=== PATIENT | male | born 1955 | race Caucasian/White ===

== ENCOUNTER 2017-01-04 05:05 | Emergency (ER) | payer OTHER ==
[~2017-01-04] VITALS: Ht 167.6 cm; Wt 100.0 kg
[~2017-01-04 05:05] MED LIST: CLOP75TA19 PO; ESOM40CA PO; LISI10TA2 PO
[2017-01-04 05:09] VITALS: Ht 167.6 cm; Wt 100.0 kg
--- NOTE | 2017-01-04 06:38 | ERD ---
ER Documentation Chief Complaint Date/Time DATE: 01/04/17 Chief Complaint Urinary retention HPI The patient is a 61-year-old male with past medical history of hypertension, hyperlipidemia, coronary artery disease with arrhythmia, CVA, benign prostatic hyperplasia, who presents the Emergency Department with complaint of urinary retention. The patient reports that approximately 8 hours ago the patient began to experience urinary hesitancy, with decreased urinary output and stream. For the past 6 hours he has had complete urinary retention, with no urine output. Since, he has developed increased discomfort in the suprapubic region overlying the bladder, that is pressure-like in nature, and rated 10/10 in intensity. He notes that he experienced similar symptoms approximately 2 months ago, though these self-resolved. Otherwise, no other history of urinary retention. He denies recent trauma. Denies fevers, sweats, chills, nausea, vomiting. Denies dysuria, hematuria, flank pain. Denies headache, dizziness, weakness, chest pain , palpitations, shortness of breath. Patient denies any bowel or bladder incontinence, numbness or weakness of the lower extremities or saddle-region anesthesia. Upon arrival to the ED, patient was placed in a bed and Quinones catheter inserted with 600 mL of urine output initially, and with a total of 950 mL urine output upon intake of history. The patient does note a history of BPH, for which he takes Flomax nightly. No other complaints at this time. ROS All systems reviewed and are negative except as per history of present illness. Medications Home Meds Reported Medications Lisinopril* (Lisinopril*) 10 Mg Tablet, 10 MG PO DAILY 07/14/12 Esomeprazole Mag Trihydrate (Nexium) 40 Mg Capsule.dr, 40 MG PO DAILY 07/14/12 Clopidogrel Bisulfate (Plavix) 75 Mg Tablet, 75 MG PO DAILY 07/14/12 Allergies Allergies: Coded Allergies: No Known Drug Allergy (Verified Allergy, Unknown, 07/15/12) PMhx/Soc History of Surgery: No Anesthesia Reaction: No Hx Neurological Disorder: Yes (CVA IN AUG 2016) Hx Respiratory Disorders: No Hx Cardiac Disorders: Yes (CAD, STENT PLACEMENT, HTN HLD) Hx Psychiatric Problems: No Hx Miscellaneous Medical Probl: Yes (BPH DIAGNOSED NOVEMBER 2016 ON FLOMAX) Hx Alcohol Use: No Hx Substance Use: No Hx Tobacco Use: No Smoking Status: Never smoker Physical Exam Vitals Vital Signs Date Time Temp Pulse Resp B/P Pulse Ox O2 Delivery O2 Flow Rate FiO2 01/04/17 05:09 97.8 57 20 125/72 97 Physical Exam GENERAL: Well-developed, well-nourished, male, in no acute distress. Resting comfortably with bedside. HEENT: Head is normocephalic, atraumatic. No scleral pallor or icterus. Conjunctiva pink. Moist mucous membranes. NECK: Supple. No tenderness. No JVD. RESPIRATORY: Lungs are clear to auscultation bilaterally. Equal breath sounds. Normal expiratory effort. CARDIOVASCULAR: Regular rate and rhythm. S1 and S2 normal. GASTROINTESTINAL: Abdomen is soft, non-tender, and non-distended. No guarding, no rebound tenderness. Normal bowel sounds. No gross peritonitis. No palpable bladder fullness at this time. GENITOURINARY: Quinones catheter in place with clear urine output noted. No gross hematuria. FLANK: No CVA tenderness. EXTREMITIES: No clubbing, cyanosis, or edema. Moving all extremities. NEUROLOGIC: The patient is alert, awake, and oriented x 3. No novel neurologic deficits. PSYCHIATRIC: Cooperative. Appropriate. Result Diagram: 01/04/17 0630 01/04/17 0630 Results 24 hrs Laboratory Tests Test 01/04/17 06:30 01/04/17 06:34 White Blood Count 9.410^3/ul Red Blood Count 4.3610^6/ul Hemoglobin 12.2g/dl Hematocrit 35.8% Mean Corpuscular Volume 82.1fl Mean Corpuscular Hemoglobin 28.0pg Mean Corpuscular Hemoglobin Concent 34.1g/dl Red Cell Distribution Width 13.3% Platelet Count 00137^3/UL Mean Platelet Volume 9.4fl Neutrophils % 75.1% Lymphocytes % 20.1% Monocytes % 3.7% Eosinophils % 0.3% Basophils % 0.3% Nucleated Red Blood Cells % 0.0/100WBC Neutrophils # 7.010^3/ul Lymphocytes # 1.910^3/ul Monocytes # 0.410^3/ul Eosinophils # 0.010^3/ul Basophils # 0.010^3/ul Nucleated Red Blood Cells # 0.010^3/ul Sodium Level 140mmol/L Potassium Level 4.0mmol/L Chloride Level 106mmol/L Carbon Dioxide Level 23mmol/L Anion Gap 15 Blood Urea Nitrogen 18mg/dl Creatinine 0.98mg/dl Glucose Level 114mg/dl Calcium Level 9.6mg/dl Total Bilirubin 0.6mg/dl Direct Bilirubin 0.00mg/dl Indirect Bilirubin 0.6mg/dl Aspartate Amino Transf (AST/SGOT) 26IU/L Alanine Aminotransferase (ALT/SGPT) 41IU/L Alkaline Phosphatase 55IU/L Total Protein 6.7g/dl Albumin 3.9g/dl Globulin 2.80g/dl Albumin/Globulin Ratio 1.39 Urine Color LT. YELLOW Urine Clarity CLEAR Urine pH 6.0 Urine Specific [place] <=1.005 Urine Ketones NEGATIVE Urine Nitrite NEGATIVE Urine Bilirubin NEGATIVE Urine Urobilinogen 0.2 E.U./dL Urine Leukocyte Esterase NEGATIVE Urine Microscopic RBC 2-5/HPF Urine Microscopic WBC 5-10/HPF Urine Hemoglobin 1+ Urine Glucose NEGATIVE% Urine Total Protein NEGATIVE Procedures/MDM MEDICAL DECISION MAKING: This is a 61-year-old male presenting to the Emergency Department with acute urinary retention. He has a known history of BPH. The patient experienced a similar episode approximately 2 months ago, though this self-resolved. Upon presentation to the ED, the patient notes that eight hours prior to arrival he developed decreased urinary stream and urinary hesitancy, with retention for six hours. Quinones catheter was placed upon ED presentation, after which time the patient noted complete resolution of discomfort. No saddle anesthesia or acute lower extremity numbness, weakness, paresthesias or decreased sensation. No evidence of cauda equina syndrome. Patient's symptoms likely secondary to prostatism. Urinalysis with no nitrites, no urine leukocyte esterase, doubt urinary tract infection. No flank pain, no CVA tenderness, no fevers, no vomiting, doubt pyeloenphritis. Laboratory testing with normal BUN and creatinine, no evidence of prerenal azotemia or acute kidney injury. After rest, the patient reports no new complaints. At this time, the patient is in stable condition and therefore can be discharged home with strict return precautions for signs of deteriorating or worsening condition. The patient is advised to follow up with his primary medical provider and/or urologist within 1 -2 days for reevaluation and further management, or return to the ER sooner for any new or worsening symptoms. I shared my medical decision making and plan with the patient at length and in great detail, and the patient verbally understands and agrees with the plan for further observation and care as an outpatient. At the time of discharge, all questions were answered. Departure Diagnosis: Primary Impression: Acute urinary retention Additional Impression: History of benign prostatic hyperplasia Condition: Stable Patient Instructions: Urinary Retention, Male Referrals: MALLORIE SALGADO MD Additional Instructions: Call your primary care doctor TOMORROW for an appointment during the next 1-2 days.See the doctor sooner or return here if your condition worsens before your appointment time. CHASTITY NASSAR PA-C Jan 04, 2017 06:37
[2017-01-04 06:48] LABS: ADD SCAN DIFF NO
[2017-01-04 06:53] LABS: BASOPHILS % 0.3 % (0.0-2.0); EOSINOPHILS % 0.3 % (0.0-7.0); HEMATOCRIT 35.8 % (42.0-52.0); HEMOGLOBIN 12.2 g/dl (14.0-18.0); LYMPHOCYTES # 1.9 10^3/ul (0.8-2.9); LYMPHOCYTES % 20.1 % (15.0-51.0); MEAN CORPUSCULAR HGB CONC 34.1 g/dl (32.0-37.0); MEAN CORPUSCULAR VOLUME 82.1 fl (82.0-101.0); MEAN PLATELET VOLUME 9.4 fl (7.4-10.4); MONOCYTE # 0.4 10^3/ul (0.3-0.9); MONOCYTES % 3.7 % (0.0-11.0); NEUTROPHILS % 75.1 % (39.0-77.0); PLATELET COUNT 244 10^3/UL (140-415); RED BLOOD COUNT 4.36 10^6/ul (4.70-6.10); RED CELL DISTRIBUTION WIDTH 13.3 % (11.5-14.5); WHITE BLOOD COUNT 9.4 10^3/ul (4.8-10.8)
[2017-01-04 07:04] LABS: ALBUMIN 3.9 g/dl (3.3-4.9)
[2017-01-04 07:07] LABS: ALBUMIN/GLOBULIN RATIO 1.39; BILIRUBIN,INDIRECT 0.6 mg/dl (0-1.1); BILIRUBIN,TOTAL 0.6 mg/dl (0.2-1.3); CALCIUM 9.6 mg/dl (8.4-10.2); CREATININE 0.98 mg/dl (0.61-1.24); TOTAL PROTEIN 6.7 g/dl (6.1-8.1)
[2017-01-04 07:08] LABS: ADD UMIC YES; URINE BILIRUBIN (Dip) NEGATIVE (NEGATIVE); URINE BLOOD (Dip) 1+ (NEGATIVE); URINE COLOR LT. YELLOW (YELLOW); URINE GLUCOSE (Dip) NEGATIVE (NEGATIVE); URINE KETONES (Dip) NEGATIVE (NEGATIVE); URINE LEUKOCYTE ESTERASE (Dip) NEGATIVE (NEGATIVE); URINE NITRITE (Dip) NEGATIVE (NEGATIVE); URINE TOTAL PROTEIN (Dip) NEGATIVE (NEGATIVE); URINE UROBILINOGEN (Dip) 0.2 E.U./dL (0.1-1.0)
[2017-01-04 07:50] VITALS: BP 115/66; PULSE 64; RESP 18; TEMP 98
== END 2017-01-04 07:50 | disposition home or self-care (01) ==
LOC: FTE 05:05
DX: R33.9 Retention of urine, unspecified (principal); I25.10 Atherosclerotic heart disease of native coronary artery without angina pectoris; I10 Essential (primary) hypertension; N40.0 Benign prostatic hyperplasia without lower urinary tract symptoms; Z79.01 Long term (current) use of anticoagulants; Z98.61 Coronary angioplasty status
CPT/HCPCS: 36415; 80053; 81001; 81003; 85025; 99283

== ENCOUNTER 2017-01-06 21:19 | Emergency (ER) | payer OTHER ==
[~2017-01-06] VITALS: Ht 167.6 cm; Wt 100.0 kg
[2017-01-06 21:22] VITALS: Ht 167.6 cm; Wt 100.0 kg
[2017-01-06 23:00] LABS: ADD SCAN DIFF NO
[2017-01-06 23:04] LABS: BASOPHILS % 0.4 % (0.0-2.0); EOSINOPHILS # 0.1 10^3/ul (0.0-0.5); EOSINOPHILS % 1.5 % (0.0-7.0); HEMATOCRIT 36.3 % (42.0-52.0); HEMOGLOBIN 12.2 g/dl (14.0-18.0); LYMPHOCYTES % 34.9 % (15.0-51.0); MEAN CORPUSCULAR HEMOGLOBIN 27.9 pg (29.0-33.0); MEAN CORPUSCULAR HGB CONC 33.6 g/dl (32.0-37.0); MEAN CORPUSCULAR VOLUME 82.9 fl (82.0-101.0); MEAN PLATELET VOLUME 9.8 fl (7.4-10.4); MONOCYTE # 0.5 10^3/ul (0.3-0.9); MONOCYTES % 5.3 % (0.0-11.0); NEUTROPHIL # 4.9 10^3/ul (1.6-7.5); NEUTROPHILS % 57.5 % (39.0-77.0); PLATELET COUNT 268 10^3/UL (140-415); RED BLOOD COUNT 4.38 10^6/ul (4.70-6.10); RED CELL DISTRIBUTION WIDTH 13.5 % (11.5-14.5); WHITE BLOOD COUNT 8.6 10^3/ul (4.8-10.8)
[2017-01-06 23:09] LABS: ADD UMIC YES; URINE BILIRUBIN (Dip) NEGATIVE (NEGATIVE); URINE BLOOD (Dip) 3+ (NEGATIVE); URINE COLOR LT. YELLOW (YELLOW); URINE GLUCOSE (Dip) NEGATIVE (NEGATIVE); URINE KETONES (Dip) NEGATIVE (NEGATIVE); URINE LEUKOCYTE ESTERASE (Dip) NEGATIVE (NEGATIVE); URINE NITRITE (Dip) NEGATIVE (NEGATIVE); URINE TOTAL PROTEIN (Dip) 2+ (NEGATIVE); URINE UROBILINOGEN (Dip) 0.2 E.U./dL (0.1-1.0)
[2017-01-06 23:14] LABS: INR 1.14; PROTIME 14.6 Sec (12.2-14.2); PT RATIO 1.1
[2017-01-06 23:15] LABS: PARTIAL THROMBOPLASTIN TIME 27.3 Sec (25.0-35.0)
[2017-01-06 23:19] LABS: ALANINE AMINOTRANSFERASE 43 IU/L (13-69); ALBUMIN/GLOBULIN RATIO 1.37; ALKALINE PHOSPHATASE 58 IU/L (42-121); ANION GAP 13 (8-16); ASPARTATE AMINO TRANSFERASE 22 IU/L (15-46); BILIRUBIN,INDIRECT 0.3 mg/dl (0-1.1); BILIRUBIN,TOTAL 0.3 mg/dl (0.2-1.3); BLOOD UREA NITROGEN 18 mg/dl (7-20); CALCIUM 9.4 mg/dl (8.4-10.2); CARBON DIOXIDE 21 mmol/L (21-31); CHLORIDE 109 mmol/L (97-110); CREATININE 0.99 mg/dl (0.61-1.24); GLUCOSE 148 mg/dl (70-220); SODIUM 139 mmol/L (135-144); TOTAL PROTEIN 6.9 g/dl (6.1-8.1)
[2017-01-06 23:26] LABS: BACTERIA,URINE MODERATE; SQUAMOUS EPITHELIAL CELL,UR RARE; URINE RBCS >200 /HPF (0)
[2017-01-06 23:34] LABS: TROPONIN-I < 0.012 ng/ml (0.00-0.12)
--- NOTE | 2017-01-07 00:47 | RADRPT ---
PROCEDURE: XR Chest. CLINICAL INDICATION: Chest pain. TECHNIQUE: Single frontal view of the chest. COMPARISON: 08/10/2016. FINDINGS: Cardiomegaly. Fluid in the right horizontal fissure, and this appears increased over interval. Elev ation right hemidiaphragm. Mild pulmonary vascular congestion is seen. Improved lung inflation ove r interval. No signs of pleural fluid or pneumothorax are seen. The osseous structures and soft tiss ues are unremarkable. IMPRESSION: 1. Elevated right hemidiaphragm. 2. Fluid in the right horizontal fissure, increased over interval. 3. Cardiomegaly and mild pulmonary vascular congestion. RPTAT: [facility] Physician Caitlyn Date Time Electronically viewed and signed by Physician Caitlyn on 01/07/2017 00:46 RS/
--- NOTE | 2017-01-07 02:52 | RADRPT ---
PROCEDURE: Ultrasound examination of the left lower extremity with Doppler. CLINICAL INDICATION: Left leg pain and swelling. TECHNIQUE: Multiple sonographic images of the left lower extremity veins were performed with sosa scale and color Doppler. COMPARISON: None. FINDINGS: The left common femoral, superficial femoral and popliteal veins demonstrate normal color flow and c ompression. There is a linear echogenicity within the left mid superficial femoral vein. IMPRESSION: Linear echogenic structure with left mid superficial femoral vein could suggest a nonocclusive throm bus or remnant central line. Clinical correlation and follow-up is recommended. A call report was made to Dr. Funez at 02:50 a.m. .Luigi Castorena MD, Date Time Electronically viewed and signed by .Luigi Castorena MD, on 01/07/2017 02:51 .T/
[2017-01-07] MEDS ORDERED: FUROSEMIDE 40 MG INJ IV ONE (03:00)
[2017-01-07 03:16] VITALS: BP 156/77; PULSE 43; RESP 20; TEMP 98.2
--- NOTE | 2017-01-07 03:46 | ERD ---
ER Documentation Chief Complaint Date/Time DATE: 01/07/17 TIME: 03:40 Chief Complaint swelling of left foot x 2 days, wants yin catheter to be removed HPI This 61-year-old male presents emergency room for bilateral leg swelling with worse swelling of the left leg for the last 2 days. He also does have mild shortness of breath. He denies chest pain. Also had a Yin catheter insertion in 2 days ago for benign prostatic hyperplasia and would not like it removed. He tried to make an appointment with a doctor to get it removed but the doctor canceled the appointment. He does not believe he any longer needs it. He does have a history of congestive heart failure as well as DVTs and currently has a inferior vena cava filter. He is on Eliquis daily. ROS All systems reviewed and are negative except as per history of present illness. Medications Home Meds Reported Medications Lisinopril* (Lisinopril*) 10 Mg Tablet, 10 MG PO DAILY 07/14/12 Esomeprazole Mag Trihydrate (Nexium) 40 Mg Capsule.dr, 40 MG PO DAILY 07/14/12 Clopidogrel Bisulfate (Plavix) 75 Mg Tablet, 75 MG PO DAILY 07/14/12 Allergies Allergies: Coded Allergies: No Known Drug Allergy (Verified Allergy, Unknown, 07/15/12) PMhx/Soc History of Surgery: Yes (STENTS X 5) Anesthesia Reaction: No Hx Neurological Disorder: Yes (CVA IN AUG 2016) Hx Respiratory Disorders: No Hx Cardiac Disorders: Yes (CAD, STENT PLACEMENT, HTN HLD) Hx Psychiatric Problems: No Hx Miscellaneous Medical Probl: Yes (BPH DIAGNOSED NOVEMBER 2016 ON FLOMAX) Hx Alcohol Use: No Hx Substance Use: No Hx Tobacco Use: No Smoking Status: Never smoker Physical Exam Vitals Vital Signs Date Time Temp Pulse Resp B/P Pulse Ox O2 Delivery O2 Flow Rate FiO2 01/07/17 03:16 98.2 43 20 156/77 94 Room Air 01/07/17 02:09 42 21 139/72 95 Room Air 01/07/17 00:00 43 21 124/63 95 Room Air 01/06/17 22:55 46 17 14/81 98 Room Air 01/06/17 21:22 98.3 57 20 136/73 100 Physical Exam Const: [] No distress Head: Atraumatic Eyes: Normal Conjunctiva ENT: Normal External Ears, Nose and Mouth. Neck: Full range of motion..~ No meningismus. Resp: Clear to auscultation bilaterally Cardio: Regular rate and rhythm, no murmurs Abd: Soft, non tender, non distended. Normal bowel sounds Skin: No petechiae or rashes Back: No midline or flank tenderness Ext: No cyanosis, or edema Neur: Awake and alert Psych: Normal Mood and Affect Result Diagram: 01/06/17223901/06/172239 Results 24 hrs Laboratory Tests Test 01/06/17 22:40 White Blood Count 8.610^3/ul Red Blood Count 4.3810^6/ul Hemoglobin 12.2g/dl Hematocrit 36.3% Mean Corpuscular Volume 82.9fl Mean Corpuscular Hemoglobin 27.9pg Mean Corpuscular Hemoglobin Concent 33.6g/dl Red Cell Distribution Width 13.5% Platelet Count 74873^3/UL Mean Platelet Volume 9.8fl Neutrophils % 57.5% Lymphocytes % 34.9% Monocytes % 5.3% Eosinophils % 1.5% Basophils % 0.4% Nucleated Red Blood Cells % 0.0/100WBC Neutrophils # 4.910^3/ul Lymphocytes # 3.010^3/ul Monocytes # 0.510^3/ul Eosinophils # 0.110^3/ul Basophils # 0.010^3/ul Nucleated Red Blood Cells # 0.010^3/ul Prothrombin Time 14.6Sec Prothrombin Time Ratio 1.1 INR International Normalized Ratio 1.14 Activated Partial Thromboplast Time 27.3Sec Urine Color LT. YELLOW Urine Clarity SLIGHTLY CLOUDY Urine pH 5.5 Urine Specific [place] >=1.030 Urine Ketones NEGATIVE Urine Nitrite NEGATIVE Urine Bilirubin NEGATIVE Urine Urobilinogen 0.2 E.U./dL Urine Leukocyte Esterase NEGATIVE Urine Microscopic RBC >200/HPF Urine Microscopic WBC 0-2/HPF Urine Squamous Epithelial Cells RARE Urine Bacteria MODERATE Urine Hemoglobin 3+ Urine Glucose NEGATIVE% Urine Total Protein 2+ Sodium Level 139mmol/L Potassium Level 4.0mmol/L Chloride Level 109mmol/L Carbon Dioxide Level 21mmol/L Anion Gap 13 Blood Urea Nitrogen 18mg/dl Creatinine 0.99mg/dl Glucose Level 148mg/dl Calcium Level 9.4mg/dl Total Bilirubin 0.3mg/dl Direct Bilirubin 0.00mg/dl Indirect Bilirubin 0.3mg/dl Aspartate Amino Transf (AST/SGOT) 22IU/L Alanine Aminotransferase (ALT/SGPT) 43IU/L Alkaline Phosphatase 58IU/L Troponin I < 0.012ng/ml B-Type Natriuretic Peptide 388PG/ML Total Protein 6.9g/dl Albumin 4.0g/dl Globulin 2.90g/dl Albumin/Globulin Ratio 1.37 Current Medications Medications (Trade) Dose Ordered Sig/Anthony Route PRN Reason Start Time Stop Time Status Last Admin Dose Admin Furosemide (Lasix) 40 mg ONCE ONCE IV 01/07/17 03:00 01/07/17 03:01 DC 01/07/17 03:10 Procedures/MDM Patient with shortness of breath and evidence of congestive heart failure on CT. I believe his bilateral leg edema with worsening symptoms on the left as a result of his chronic DVT which the patient already knew that he had. Because of the shortness of breath as well as increasing fluid I did offer him admission for congestive heart failure and further evaluation of his chronic DVT. Him and his however did not want to stay in the hospital and absolutely wanted to go home instead. I believe the patient is currently stable and I will not make him sign out AGAINST MEDICAL ADVICE. His BNP is only mildly elevated. He is on Eliquis currently so I am can have him follow- up with his primary care doctor for dose adjustment. He was also able to urinate after Yin catheter was removed and he has no signs of urinary tract infection on urinalysis today. EKG interpretation: Sinus bradycardia rate of 43, first-degree AV block, normal axis, no ST or T-wave changes concerning for acute ischemia. QTC of 481 associate curator interpretation: Persistent sinus bradycardia with normal blood pressure no other arrhythmias Chest x-ray interpretation: Engorgement of pulmonary vasculature with fluid in the fissure consistent with mild congestive heart failure, no pneumothorax, no widened mediastinum, no fractures. Departure Diagnosis: Primary Impression: Chronic deep vein thrombosis (DVT) Additional Impressions: CHF (congestive heart failure) Lower extremity edema Condition: Stable Patient Instructions: Peripheral Edema, Bilateral Additional Instructions: Call your primary care doctor TOMORROW for an appointment during the next 2-3 days.See the doctor sooner or return here if your condition worsens before your appointment time. LEON TOWNSEND DO Jan 07, 2017 03:46
[2017-01-07] MEDS ORDERED: TAMS-14 PO (06:02)
== END 2017-01-07 03:40 | disposition home or self-care (01) ==
LOC: E/R 21:19
DX: I82.402 Acute embolism and thrombosis of unspecified deep veins of left lower extremity (principal); I50.9 Heart failure, unspecified; R60.0 Localized edema; I25.10 Atherosclerotic heart disease of native coronary artery without angina pectoris; I10 Essential (primary) hypertension
CPT/HCPCS: 36415; 71010; 80053; 81001; 83880; 84484; 85025; 85610; 85730; 93005; 93971; 96374; 99285; J1940; 81003

== ENCOUNTER 2017-01-07 05:04 | Emergency (ER) | payer OTHER ==
[~2017-01-07] VITALS: Ht 167.6 cm; Wt 100.0 kg
[2017-01-07 05:05] VITALS: Ht 167.6 cm; Wt 100.0 kg
[2017-01-07] MEDS ORDERED: TAMS-14 PO (06:02)
--- NOTE | 2017-01-07 06:08 | ERD ---
ER Documentation Chief Complaint Date/Time DATE: 01/07/17 TIME: 06:06 Chief Complaint requesting yin cath insertion, urinary retention HPI This 61-year-old male returns to the emergency room because he did come in early demanding that his Yin catheter be removed. It was removed in the ER. Now he returns a few hours later for urinary retention and inability urinate. He has a history of an enlarged prostate. He had no urinary tract infection earlier. ROS All systems reviewed and are negative except as per history of present illness. Medications Home Meds Active Scripts Tamsulosin Hcl* (Flomax*) 0.4 Mg Cap.er.24h, 0.4 MG PO DAILY, #14 CAP Prov:LEON TOWNSEND DO 01/07/17 Reported Medications Lisinopril* (Lisinopril*) 10 Mg Tablet, 10 MG PO DAILY 07/14/12 Esomeprazole Mag Trihydrate (Nexium) 40 Mg Capsule.dr, 40 MG PO DAILY 07/14/12 Clopidogrel Bisulfate (Plavix) 75 Mg Tablet, 75 MG PO DAILY 07/14/12 Allergies Allergies: Coded Allergies: No Known Drug Allergy (Verified Allergy, Unknown, 07/15/12) PMhx/Soc History of Surgery: Yes (STENTS X 5) Anesthesia Reaction: No Hx Neurological Disorder: Yes (CVA IN AUG 2016) Hx Respiratory Disorders: No Hx Cardiac Disorders: Yes (CAD, STENT PLACEMENT, HTN HLD) Hx Psychiatric Problems: No Hx Miscellaneous Medical Probl: Yes (BPH DIAGNOSED NOVEMBER 2016 ON FLOMAX) Hx Alcohol Use: No Hx Substance Use: No Hx Tobacco Use: No Smoking Status: Never smoker Physical Exam Vitals Vital Signs Date Time Temp Pulse Resp B/P Pulse Ox O2 Delivery O2 Flow Rate FiO2 01/07/17 05:05 98.2 45 20 153/77 98 Physical Exam Const: [] Mild distress Abdominal exam: Suprapubic fullness and mild tenderness, no other abdominal distention or tenderness, normal bowel sounds. Procedures/MDM Urinary retention with enlarged prostate. Yin catheter was placed with a leg bag and patient is once again instructed to not have it removed until he sees his urologist. Return precautions also given per Departure Diagnosis: Primary Impression: Urinary retention Condition: Stable Patient Instructions: Urinary Retention, Male Additional Instructions: Call your primary care doctor TOMORROW for an appointment during the next 1-2 days to get a referral for a urologist or see you urologits to have yin removed.See the doctor sooner or return here if your condition worsens before your appointment time. LEON TOWNSEND DO Jan 07, 2017 06:08
== END 2017-01-07 06:14 | disposition home or self-care (01) ==
LOC: E/R 05:04
DX: R33.9 Retention of urine, unspecified (principal); I10 Essential (primary) hypertension; I25.10 Atherosclerotic heart disease of native coronary artery without angina pectoris; Z98.61 Coronary angioplasty status

== ENCOUNTER 2017-07-11 02:58 | Inpatient (IN) | payer OTHER ==
[2017-07-11] VITALS (11 sets, daily range): BP systolic 113–158; BP diastolic 70–94; PULSE 45–100; RESP 16–20; Ht 180.3 cm; Wt 105.5 kg
[~2017-07-11] VITALS: Ht 180.3 cm; Wt 105.5 kg
[~2017-07-11 02:58] MED LIST changes: +TAMS-14 PO
[2017-07-11] MEDS ORDERED: ESCITALOPRAM 10 MG TAB PO ONE (04:00)
[2017-07-11] MEDS ORDERED: ACETAMINOPHEN 325 MG TAB PO PRN (04:00)
[2017-07-11] MEDS ORDERED: ONDANSETRON 4 MG INJ IV PRN (04:00)
[2017-07-11] MEDS: FUROSEMIDE 40 MG INJ IV SCH ×2 (06:44→17:25)
[2017-07-11] MEDS ORDERED: AMIODARONE 200 MG TAB PO SCH (09:00)
[2017-07-11] MEDS: ESCITALOPRAM 10 MG TAB PO SCH (09:23)
[2017-07-11] MEDS: APIXABAN 5 MG TABLET PO SCH ×2 (09:23→20:45)
[2017-07-11] MEDS: ASPIRIN 81 MG TAB PO SCH (09:23)
[2017-07-11] MEDS: METOPROLOL 25 MG TAB PO SCH ×2 (09:24→20:37)
--- NOTE | 2017-07-11 10:30 | RADRPT ---
Echocardiogram Report Patient Name: FRED WINTERS Gender: Male Date: 1955 Study Date: 11-Jul-2017 Senior Director Insight: Sherrie [facility] Location: 55[address] Ref. Physician: DEMETRA OAKES Quality: Adequate Procedures: Transthoracic echocardiogram with complete 2D, M-Mode, and doppler examination. Indications: Congestive Heart Failure. 2D/M Mode Doppler Measurement Value Normal Ranges Measurement Value Normal Ranges LVIDd 2D 5.0 3.5 - 5.6 cm AV Peak Gabe 1.2 m/sec LVIDs 2D 3.8 2.1 - 4.1 cm AV Peak PG 6.0 mmHg FS 2D 24.6 % LVOT Peak Gabe 1.2 m/sec LVPWd 2D 1.1 0.6 - 1.1 cm LVOT Peak PG 5.0 mmHg IVSd 2D 1.8 0.6 - 1.1 cm MV E Peak Gabe 1.1 m/sec IVS/LVPW 2D 1.7 MV Decel Time 183 msec AoR Diam 2D 3.3 2.0 - 3.7 cm TR Peak Gabe 2.8 m/sec LA/Ao 2D 1 0 - 1 TR Peak PG 32.0 mmHg EDV 2D 126.0 cm3 RVSP 40.0 mmHg ESV 2D 54.0 cm3 LA Dimen 2D 4.0 2.3 - 4.0 cm Findings Left Ventricle: Normal left ventricular cavity size. Moderate asymmetric septal hypertrophy. Mild left ventricular systolic dysfunction. Ejection fraction is visually estimated at 45 %. Abnormal Diastolic Function. Right Ventricle: Normal right ventricular size. Normal right ventricular systolic function. Left Atrium: The left atrium is normal in size. Right Atrium: The right atrium is normal in size. Mitral Valve: Mild mitral leaflet calcification. Mild mitral annular calcification. Trace mitral regurgitation. Aortic Valve: No significant aortic stenosis. Aortic cusps appear mildly calcified. Trace aortic valve regurgitation. Tricuspid Valve: Normal appearance of the tricuspid valve. Estimated peak PA systolic pressure 40 mmHg. There is mild tricuspid regurgitation. Pulmonic Valve: Pulmonic valve not well visualized. There is trace pulmonic regurgitation. Pericardium: Normal pericardium with no significant pericardial effusion. Aorta: Normal aortic root. IVC: Dilated IVC with respiratory collapse consistent with elevated right atrial pressure. Conclusions Normal left ventricular cavity size. Moderate asymmetric septal hypertrophy. Mild left ventricular systolic dysfunction. Ejection fraction is visually estimated at 45 %. Abnormal Diastolic Function. Normal right ventricular size. Normal right ventricular systolic function. The left atrium is normal in size. The right atrium is normal in size. Estimated peak PA systolic pressure 40 mmHg. There is mild tricuspid regurgitation. No significant valvular stenosis or regurgitation seen of remaining visualized valves. Normal pericardium with no significant pericardial effusion. Electronically Signed By: Jude Shaw 11-Jul-2017 10:29:11 -0700 Patient Name: FRDE WINTERS Study Date: 11-Jul-[id number]
--- NOTE | 2017-07-11 10:30 | RADRPT ---
Echocardiogram Report Patient Name: FRED WINTERS Gender: Male Date: 1955 Study Date: 11-Jul-2017 Cash Control Specialist: Sherrie [facility] Location: [facility] Ref. Physician: DEMETRA OAKES Quality: Adequate Procedures: Transthoracic echocardiogram with complete 2D, M-Mode, and doppler examination. Indications: Congestive Heart Failure. 2D/M Mode Doppler Measurement Value Normal Ranges Measurement Value Normal Ranges LVIDd 2D 5.0 3.5 - 5.6 cm AV Peak Gabe 1.2 m/sec LVIDs 2D 3.8 2.1 - 4.1 cm AV Peak PG 6.0 mmHg FS 2D 24.6 % LVOT Peak Gabe 1.2 m/sec LVPWd 2D 1.1 0.6 - 1.1 cm LVOT Peak PG 5.0 mmHg IVSd 2D 1.8 0.6 - 1.1 cm MV E Peak Gabe 1.1 m/sec IVS/LVPW 2D 1.7 MV Decel Time 183 msec AoR Diam 2D 3.3 2.0 - 3.7 cm TR Peak Gabe 2.8 m/sec LA/Ao 2D 1 0 - 1 TR Peak PG 32.0 mmHg EDV 2D 126.0 cm3 RVSP 40.0 mmHg ESV 2D 54.0 cm3 LA Dimen 2D 4.0 2.3 - 4.0 cm Findings Left Ventricle: Normal left ventricular cavity size. Moderate asymmetric septal hypertrophy. Mild left ventricular systolic dysfunction. Ejection fraction is visually estimated at 45 %. Abnormal Diastolic Function. Right Ventricle: Normal right ventricular size. Normal right ventricular systolic function. Left Atrium: The left atrium is normal in size. Right Atrium: The right atrium is normal in size. Mitral Valve: Mild mitral leaflet calcification. Mild mitral annular calcification. Trace mitral regurgitation. Aortic Valve: No significant aortic stenosis. Aortic cusps appear mildly calcified. Trace aortic valve regurgitation. Tricuspid Valve: Normal appearance of the tricuspid valve. Estimated peak PA systolic pressure 40 mmHg. There is mild tricuspid regurgitation. Pulmonic Valve: Pulmonic valve not well visualized. There is trace pulmonic regurgitation. Pericardium: Normal pericardium with no significant pericardial effusion. Aorta: Normal aortic root. IVC: Dilated IVC with respiratory collapse consistent with elevated right atrial pressure. Conclusions Normal left ventricular cavity size. Moderate asymmetric septal hypertrophy. Mild left ventricular systolic dysfunction. Ejection fraction is visually estimated at 45 %. Abnormal Diastolic Function. Normal right ventricular size. Normal right ventricular systolic function. The left atrium is normal in size. The right atrium is normal in size. Estimated peak PA systolic pressure 40 mmHg. There is mild tricuspid regurgitation. No significant valvular stenosis or regurgitation seen of remaining visualized valves. Normal pericardium with no significant pericardial effusion. Electronically Signed By: Jude Shaw 11-Jul-2017 10:29:11 -0700 Patient Name: FRED WINTERS Study Date: 11-Jul-[id number]
--- NOTE | 2017-07-11 10:30 | RADRPT ---
Echocardiogram Report Patient Name: FRED WINTERS Gender: Male Date: 1955 Study Date: 11-Jul-2017 Commercial Journeyman Electrician: Sherrie [facility] Location: [address] Ref. Physician: DEMETRA OAKES Quality: Adequate Procedures: Transthoracic echocardiogram with complete 2D, M-Mode, and doppler examination. Indications: Congestive Heart Failure. 2D/M Mode Doppler Measurement Value Normal Ranges Measurement Value Normal Ranges LVIDd 2D 5.0 3.5 - 5.6 cm AV Peak Gabe 1.2 m/sec LVIDs 2D 3.8 2.1 - 4.1 cm AV Peak PG 6.0 mmHg FS 2D 24.6 % LVOT Peak Gabe 1.2 m/sec LVPWd 2D 1.1 0.6 - 1.1 cm LVOT Peak PG 5.0 mmHg IVSd 2D 1.8 0.6 - 1.1 cm MV E Peak Gabe 1.1 m/sec IVS/LVPW 2D 1.7 MV Decel Time 183 msec AoR Diam 2D 3.3 2.0 - 3.7 cm TR Peak Gabe 2.8 m/sec LA/Ao 2D 1 0 - 1 TR Peak PG 32.0 mmHg EDV 2D 126.0 cm3 RVSP 40.0 mmHg ESV 2D 54.0 cm3 LA Dimen 2D 4.0 2.3 - 4.0 cm Findings Left Ventricle: Normal left ventricular cavity size. Moderate asymmetric septal hypertrophy. Mild left ventricular systolic dysfunction. Ejection fraction is visually estimated at 45 %. Abnormal Diastolic Function. Right Ventricle: Normal right ventricular size. Normal right ventricular systolic function. Left Atrium: The left atrium is normal in size. Right Atrium: The right atrium is normal in size. Mitral Valve: Mild mitral leaflet calcification. Mild mitral annular calcification. Trace mitral regurgitation. Aortic Valve: No significant aortic stenosis. Aortic cusps appear mildly calcified. Trace aortic valve regurgitation. Tricuspid Valve: Normal appearance of the tricuspid valve. Estimated peak PA systolic pressure 40 mmHg. There is mild tricuspid regurgitation. Pulmonic Valve: Pulmonic valve not well visualized. There is trace pulmonic regurgitation. Pericardium: Normal pericardium with no significant pericardial effusion. Aorta: Normal aortic root. IVC: Dilated IVC with respiratory collapse consistent with elevated right atrial pressure. Conclusions Normal left ventricular cavity size. Moderate asymmetric septal hypertrophy. Mild left ventricular systolic dysfunction. Ejection fraction is visually estimated at 45 %. Abnormal Diastolic Function. Normal right ventricular size. Normal right ventricular systolic function. The left atrium is normal in size. The right atrium is normal in size. Estimated peak PA systolic pressure 40 mmHg. There is mild tricuspid regurgitation. No significant valvular stenosis or regurgitation seen of remaining visualized valves. Normal pericardium with no significant pericardial effusion. Electronically Signed By: Jude Shaw 11-Jul-2017 10:29:11 -0700 Patient Name: FRED WINTERS Study Date: 11-Jul-[id number]
--- NOTE | 2017-07-11 15:53 | HP ---
Date/Time of Note Date/Time of Note DATE: 07/11/17 TIME: 15:14 Assessment/Plan VTE Prophylaxis VTE Prophylaxis Intervention: other (on Eliquis ) Lines/Catheters IV Catheter Type (from Nrs): Saline Lock Urinary Cath still in place: Yes Reason Cath still needed: other (indicate) (diuresis ) Assessment/Plan Assessment/Plan 62-year-old male with: 1. Congestive heart failure exacerbation, acute on chronic systolic dysfunction with an audible volume overload and respiratory distress on admission, all improved with diuretics. Continue Lasix, continue beta-blockers, if blood pressure tolerates may benefit from MELODY inhibitors or ARB Continue Eliquis for venous thromboembolism and also history of A. fib with previous CVA Cardiac enzymes negative 1, will complete rule out his second set, cardiac enzymes were negative at [facility]. Currently in atrial fibrillation rate controlled. DC Quinones catheter tomorrow. 2. Atrial fibrillation, chronic, paroxysmal, previous ischemic CVA, currently on amiodarone and also beta-blockers. Episode of bradycardia at [facility], resolving now in atrial fibrillation. Continue amiodarone, continue beta-blockers. Continue Eliquis for secondary prevention of stroke. Replete electrolytes with goal potassium of 4 and magnesium 2, TFTs within normal 3. 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 Patient currently on Eliquis, rate control PT evaluation in a.m. 4. Coronary artery disease, status post angiogram and stenting, continue aspirin along with other cardiac medications 5. Venous thromboembolism, with history of lower extremity DVT and status post IVC filter placement. Currently on Eliquis. Will repeat Doppler lower extremities. 6. Hyperlipidemia: Check fasting lipid panel, continue statins Prophylaxis: Continue Eliquis, Pepcid for GI prophylaxis Disposition: Diuresis, Doppler lower extremity, continue anticoagulation, physical therapy evaluation in a.m. Discharge planning in the next 24-48 hours. HPI/ROS Admit Date/Time Admit Date/Time Jul 11, 2017 at 02:58 Hx of Present Illness Chief complaint: Shortness of breath, lower extremity edema for a few months History of presenting illness: This is a 62-year-old male, with known coronary artery disease, status post ischemic CVA last year, also status post left lower extremity DVT and IVC filter placement a few months ago who presented at [facility] ER with a reported shortness of breath and lower extremity edema progressive over the past few months and also was noted to be bradycardic in the 40s. Patient apparently got a dose of atropine, he went into tachycardia and actually atrial fibrillation. Upon transfer to [facility] , he was in atrial fibrillation. He is a known paroxysmal atrial fibrillation with previous CVA and a venous thromboembolism and has been on Eliquis. He is currently in atrial fibrillation but rate controlled. No further shortness of breath and respiratory status much improved according to patient. No chest pains, nausea, vomiting. Patient was definitely in volume overload and CHF exacerbation on admission, on IV Lasix, very good diuresis so far, on room air currently. 2D echocardiogram with ejection fraction of 45%. Patient had acute CVA back in August 2016, he reports that he has very minimal neurological deficits except for difficulty with balance sometimes while ambulating. ROS Constitutional: no complaints Eyes: no complaints ENT: no complaints Respiratory: shortness of breath Cardiovascular: other (Low heart rate) Gastrointestinal: no complaints Genitourinary: no complaints Musculoskeletal: swelling (LLE>RLE) Skin: no complaints Neurologic: no complaints Endocrine: no complaints Lymphatic: no complaints Psychological: no complaints Immunologic: no complaints PMH/Family/Social Past Medical History Coronary artery disease. Paroxysmal Atrial Fibrillation Hypertension. Hyperlipidemia LLE DVT, s/p IVC filter few month ago and on Eliquis. Past Surgical History Past Surgical Hx: angioplasty (2011 with stent placement ), other (s/p IVC Filter placement ) Social History Alcohol Use: none Smoking Status: Former smoker Drug Use: none Exam/Review of Systems Vital Signs Vitals Vital Signs Date Time Temp Pulse Resp B/P Pulse Ox O2 Delivery O2 Flow Rate FiO2 07/11/17 12:01 76 07/11/17 11:53 98.5 18 126/85 92 Exam Constitutional: alert, oriented, other (Much more comfortable), well developed Respiratory: diminished breath sounds (At bases bilaterally), normal air movement Cardiovascular: irregular rhythm (Atrial fibrillation) Gastrointestinal: non-tender, soft Musculoskeletal: nl extremities to inspection Extremities: normal pulses, other (No clubbing or cyanosis, much improved anasarca) Neurological: ELECTRONICS TECH II-XII intact, nl mental status, nl speech, nl strength Labs Result Diagram: 07/11/1730 07/11/17 0630 Medications Medications Current Medications Metoprolol Tartrate (Lopressor) 25 mg BID PO Last administered on 07/11/17 09: 24; Admin Dose 25 MG; Start 07/11/17 at 09:00 Acetaminophen (Tylenol Tab) 650 mg Q6H PRN PO PAIN AND OR ELEVATED TEMP; Start 07/11/17 at 04:00 Ondansetron HCl (Zofran Inj) 4 mg Q6H PRN IV NAUSEA AND/OR VOMITING; Start 07/11/17 at 04:00 Amiodarone HCl (Cordarone) 200 mg DAILY PO Last administered on 07/11/17 09:24 ; Admin Dose 200 MG; Start 07/11/17 at 09:00 Apixaban (Eliquis) 5 mg BID PO Last administered on 07/11/17 09:23; Admin Dose 5 MG; Start 07/11/17 at 09:00 Aspirin (Aspirin) 81 mg DAILY PO Last administered on 07/11/17 09:23; Admin Dose 81 MG; Start 07/11/17 at 09:00 Atorvastatin Calcium (Lipitor) 40 mg HS PO ; Start 07/11/17 at 21:00 Escitalopram Oxalate (Lexapro) 10 mg DAILY PO Last administered on 07/11/17 09 :23; Admin Dose 10 MG; Start 07/11/17 at 09:00 Procedures Procedures Echocardiogram Report Patient Name: FRED WINTERS Gender: Male Date: 1955 Study Date: 11-Jul-2017 Travel Med Surg Rn: Sherrie [facility] Location: [facility] Ref. Physician: DEMETRA OAKES Quality: Adequate Procedures: Transthoracic echocardiogram with complete 2D, M-Mode, and doppler examination. Indications: Congestive Heart Failure. 2D/M Mode Doppler Measurement Value Normal Ranges Measurement Value Normal Ranges LVIDd 2D 5.0 3.5 - 5.6 cm AV Peak Gabe 1.2 m/sec LVIDs 2D 3.8 2.1 - 4.1 cm AV Peak PG 6.0 mmHg FS 2D 24.6 % LVOT Peak Gabe 1.2 m/sec LVPWd 2D 1.1 0.6 - 1.1 cm LVOT Peak PG 5.0 mmHg IVSd 2D 1.8 0.6 - 1.1 cm MV E Peak Gabe 1.1 m/sec IVS/LVPW 2D 1.7 MV Decel Time 183 msec AoR Diam 2D 3.3 2.0 - 3.7 cm TR Peak Gabe 2.8 m/sec LA/Ao 2D 1 0 - 1 TR Peak PG 32.0 mmHg EDV 2D 126.0 cm3 RVSP 40.0 mmHg ESV 2D 54.0 cm3 LA Dimen 2D 4.0 2.3 - 4.0 cm Findings Left Ventricle: Normal left ventricular cavity size. Moderate asymmetric septal hypertrophy. Mild left ventricular systolic dysfunction. Ejection fraction is visually estimated at 45 %. Abnormal Diastolic Function. Right Ventricle: Normal right ventricular size. Normal right ventricular systolic function. Left Atrium: The left atrium is normal in size. Right Atrium: The right atrium is normal in size. Mitral Valve: Mild mitral leaflet calcification. Mild mitral annular calcification. Trace mitral regurgitation. Aortic Valve: No significant aortic stenosis. Aortic cusps appear mildly calcified. Trace aortic valve regurgitation. Tricuspid Valve: Normal appearance of the tricuspid valve. Estimated peak PA systolic pressure 40 mmHg. There is mild tricuspid regurgitation. Pulmonic Valve: Pulmonic valve not well visualized. There is trace pulmonic regurgitation. Pericardium: Normal pericardium with no significant pericardial effusion. Aorta: Normal aortic root. IVC: Dilated IVC with respiratory collapse consistent with elevated right atrial pressure. Conclusions Normal left ventricular cavity size. Moderate asymmetric septal hypertrophy. Mild left ventricular systolic dysfunction. Ejection fraction is visually estimated at 45 %. Abnormal Diastolic Function. Normal right ventricular size. Normal right ventricular systolic function. The left atrium is normal in size. The right atrium is normal in size. Estimated peak PA systolic pressure 40 mmHg. There is mild tricuspid regurgitation. No significant valvular stenosis or regurgitation seen of remaining visualized valves. Normal pericardium with no significant pericardial effusion. Electronically Signed By: Jude Shaw 11-Jul-2017 10:29:11 -0700 Chest x-ray, outside hospital: Cardiomegaly noted, bibasilar airspace opacity possibly atelectasis, no pneumothorax, no pleural effusion JOSH OAKES Jul 11, 2017 15:24
--- NOTE | 2017-07-11 16:23 | RADRPT ---
PROCEDURE: US bilateral lower extremity veins. CLINICAL INDICATION: Bilateral leg pain and swelling. TECHNIQUE: Multiple longitudinal and transverse images of the bilateral lower extremity veins were obtained with sosa scale and color Doppler imaging. The common femoral vein, femoral vein, and popl iteal vein were evaluated. 2D grayscale measurements with compression sonography, color Doppler, and pulsed Doppler with augmentation. COMPARISON: Left lower extremity venous Doppler dated 01/07/2017 which demonstrated partial thromb osis of the left femoral vein. FINDINGS: The right common femoral, femoral and popliteal veins are normally compressible throughout. Color f low demonstrates normal filling of the vessels. Normal waveforms are visualized and there is normal response to augmentation. The left common femoral vein and popliteal vein demonstrate normal flow and compressibility. There i s partial compressibility of the left femoral vein consistent with chronic thrombus with recanalizat ion. IMPRESSION: 1. No evidence of acute deep venous thrombosis. 2. Chronic thrombus with recanalization of the left femoral vein. RPTAT: QQ .Delvis Smith MD, MD Date Time Electronically viewed and signed by .Delvis Smith MD, on 07/11/2017 16:22 .R/
--- NOTE | 2017-07-11 19:31 | RADRPT ---
Vent Rate: 101 bpm RR Interval: 0 msec IA Interval: 0 msec QRS Duration: 116 msec QT Interval: 374 msec QTC Interval: 484 msec P-R-T [place]: 0 - 29 - 0 degrees Atrial fibrillation with rapid ventricular response Incomplete left bundle branch block Marked ST abnormality, possible inferior subendocardial injury Abnormal ECG Electronically Signed By: Phillip Patel [id number]
--- NOTE | 2017-07-11 19:31 | RADRPT ---
Vent Rate: 101 bpm RR Interval: 0 msec MO Interval: 0 msec QRS Duration: 116 msec QT Interval: 374 msec QTC Interval: 484 msec P-R-T [place]: 0 - 29 - 0 degrees Atrial fibrillation with rapid ventricular response Incomplete left bundle branch block Marked ST abnormality, possible inferior subendocardial injury Abnormal ECG Electronically Signed By: Phillip Patel [id number]
--- NOTE | 2017-07-11 19:31 | RADRPT ---
Vent Rate: 101 bpm RR Interval: 0 msec SC Interval: 0 msec QRS Duration: 116 msec QT Interval: 374 msec QTC Interval: 484 msec P-R-T [place]: 0 - 29 - 0 degrees Atrial fibrillation with rapid ventricular response Incomplete left bundle branch block Marked ST abnormality, possible inferior subendocardial injury Abnormal ECG Electronically Signed By: Phillip Patel [id number]
[2017-07-11] MEDS: ATORVASTATIN 40 MG TAB PO SCH (20:45)
[2017-07-12] VITALS (12 sets, daily range): BP systolic 100–140; BP diastolic 58–75; PULSE 42–77; RESP 18–20
[2017-07-12] MEDS: FUROSEMIDE 40 MG INJ IV SCH (05:45)
--- NOTE | 2017-07-12 08:25 | RADRPT ---
PROCEDURE: XR Chest. CLINICAL INDICATION: Shortness of breath. TECHNIQUE: Single frontal view. COMPARISON: 01/06/2017. FINDINGS: There is elevation of the right hemidiaphragm. Mild linear atelectasis is present in the midlung zon es. The lungs are otherwise clear. The heart is enlarged. There is no pleural effusion. There is no pneumothorax. IMPRESSION: 1. Elevation of the right hemidiaphragm. 2. Mild linear atelectasis in the midlung zones. 3. Cardiomegaly. 4. Otherwise unremarkable chest radiograph. RPTAT: QQ .Delvis Smith MD, MD Date Time Electronically viewed and signed by .Delvis Smith MD, MD on 07/12/2017 08:25 .R/
[2017-07-12] MEDS: ASPIRIN 81 MG TAB PO SCH (08:48)
[2017-07-12] MEDS: ESCITALOPRAM 10 MG TAB PO SCH (08:48)
[2017-07-12] MEDS: APIXABAN 5 MG TABLET PO SCH ×2 (08:48→20:51)
[2017-07-12] MEDS ORDERED: POTASSIUM CHLORIDE (SR) 20 MEQ TAB PO STA (09:54)
[2017-07-12] MEDS ORDERED: MAGNESIUM SULFATE 2 GM/50 ML 50 ML IVPB ONE (10:00)
[2017-07-12] MEDS: AMIODARONE 200 MG TAB PO SCH (10:48)
--- NOTE | 2017-07-12 15:54 | PN ---
Date/Time of Note Date/Time of Note DATE: 07/12/17 TIME: 15:39 Assessment/Plan VTE Prophylaxis VTE Prophylaxis Intervention: other (On Eliquis) Lines/Catheters IV Catheter Type (from Nrs): Saline Lock Assessment/Plan Assessment/Plan 62-year-old male with: 1. Congestive heart failure exacerbation, acute on chronic systolic dysfunction with an audible volume overload and respiratory distress on admission, all improved with diuretics. Continue Lasix with plan to convert to p.o. in a.m. Due to sinus bradycardia noted, will discontinue beta blockers, if renal function stable in a.m. and blood pressure tolerates, will resume lisinopril. Continue Eliquis for venous thromboembolism and also history of A. fib with previous CVA Cardiac enzymes negative 2 Currently back to sinus rhythm. 2. Atrial fibrillation, chronic, paroxysmal, previous ischemic CVA, currently on amiodarone and also beta-blockers. Back in sinus rhythm, patient with chronic sinus bradycardia well tolerated, will decrease amiodarone dosing, discontinue beta blockers for now. Continue Eliquis for secondary prevention of stroke. Replete electrolytes with goal potassium of 4 and magnesium 2, TFTs within normal 3. 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 Patient currently on Eliquis, rate control PT evaluation in a.m. 4. Coronary artery disease, status post angiogram and stenting, continue aspirin along with other cardiac medications but having to discontinue beta blockers due to bradycardia noted. 5. Venous thromboembolism, with history of left lower extremity DVT and status post IVC filter placement. Currently on Eliquis. 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 6. Hyperlipidemia: continue statins Prophylaxis: Continue Eliquis, Pepcid for GI prophylaxis. Disposition: Diuresis, monitor heart rate overnight, discharge planning in the next 24 hours if remains stable. Patient is encouraged to ambulate. Subjective 24 Hr Interval Summary Free Text/Dictation Patient feels better today, he is able to lie flat, he is comfortable, on room air. He has been diuresing really well, Lasix is decreased to 20 mg IV twice daily. He remains on Eliquis, no new neurological deficits. Discharge planning for tomorrow if patient remains stable. He is noted to have sinus bradycardia down to 45, amiodarone has been decreased, beta-blockers on hold likely to be discontinued at the time of discharge. Exam/Review of Systems Vital Signs Vitals Vital Signs Date Time Temp Pulse Resp B/P Pulse Ox O2 Delivery O2 Flow Rate FiO2 07/12/17 12:12 42 07/12/17 11:49 98.7 20 119/75 94 Intake and Output 07/11/17 07/11/17 07/12/17 15:00 23:00 07:00 Intake Total 600 ml 700 ml Output Total 3300 ml 850 ml Balance -2700 ml -150 ml Exam Constitutional: alert, oriented, well developed Neck: supple Respiratory: clear to auscultation, normal air movement Cardiovascular: other (Bradycardia, asymptomatic, noted, chronic), regular rate and rhythm Gastrointestinal: non-tender, soft Musculoskeletal: nl extremities to inspection Extremities: normal pulses, other (No edema, clubbing or cyanosis) Neurological: MICROWAVE REMOTE SENSING SCIENTIST II-XII intact, nl mental status, nl speech, nl strength Results Result Diagram: 07/12/17 0600 07/12/17 0600 Results 24 hrs Laboratory Tests Test 07/12/17 06:00 White Blood Count 10.1 Red Blood Count 4.86 Hemoglobin 13.2 L Hematocrit 41.3 L Mean Corpuscular Volume 85.0 Mean Corpuscular Hemoglobin 27.2 L Mean Corpuscular Hemoglobin Concent 32.0 Red Cell Distribution Width 14.4 Platelet Count 257 Mean Platelet Volume 10.1 Neutrophils % 64.6 Lymphocytes % 26.4 Monocytes % 7.5 Eosinophils % 0.6 Basophils % 0.5 Nucleated Red Blood Cells % 0.0 Neutrophils # 6.6 Lymphocytes # 2.7 Monocytes # 0.8 Eosinophils # 0.1 Basophils # 0.1 Nucleated Red Blood Cells # 0.0 Sodium Level 144 Potassium Level 3.6 Chloride Level 104 Carbon Dioxide Level 27 Anion Gap 17 H Blood Urea Nitrogen 29 #H Creatinine 1.27 H Glucose Level 109 Calcium Level 9.3 Phosphorus Level 5.7 H Magnesium Level 1.8 Total Bilirubin 1.0 Direct Bilirubin 0.00 Indirect Bilirubin 1.0 Aspartate Amino Transf (AST/SGOT) 30 Alanine Aminotransferase (ALT/SGPT) 54 Alkaline Phosphatase 56 Total Protein 6.9 Albumin 4.1 Globulin 2.80 Albumin/Globulin Ratio 1.46 Triglycerides Level 89 Cholesterol Level 141 LDL Cholesterol, Calculated 76 HDL Cholesterol 47 Cholesterol/HDL Ratio 3.0 Imaging Free Text/Dictation PROCEDURE: US bilateral lower extremity veins. CLINICAL INDICATION: Bilateral leg pain and swelling. TECHNIQUE: Multiple longitudinal and transverse images of the bilateral lower extremity veins were obtained with sosa scale and color Doppler imaging. The common femoral vein, femoral vein, and popliteal vein were evaluated. 2D grayscale measurements with compression sonography, color Doppler, and pulsed Doppler with augmentation. COMPARISON: Left lower extremity venous Doppler dated 01/07/2017 which demonstrated partial thrombosis of the left femoral vein. FINDINGS: The right common femoral, femoral and popliteal veins are normally compressible throughout. Color flow demonstrates normal filling of the vessels. Normal waveforms are visualized and there is normal response to augmentation. The left common femoral vein and popliteal vein demonstrate normal flow and compressibility. There is partial compressibility of the left femoral vein consistent with chronic thrombus with recanalization. IMPRESSION: 1. No evidence of acute deep venous thrombosis. 2. Chronic thrombus with recanalization of the left femoral vein. RPTAT: QQ .Delvis Smith MD, MD Date Time Electronically viewed and signed by .Delvis Smith MD, MD on 07/11/2017 16:22 PROCEDURE: XR Chest. CLINICAL INDICATION: Shortness of breath. TECHNIQUE: Single frontal view. COMPARISON: 01/06/2017. FINDINGS: There is elevation of the right hemidiaphragm. Mild linear atelectasis is present in the midlung zones. The lungs are otherwise clear. The heart is enlarged. There is no pleural effusion. There is no pneumothorax. IMPRESSION: 1. Elevation of the right hemidiaphragm. 2. Mild linear atelectasis in the midlung zones. 3. Cardiomegaly. 4. Otherwise unremarkable chest radiograph. RPTAT: QQ .Delvis Smith MD, MD Date Time Electronically viewed and signed by .Delvis Smith MD, MD on 07/12/2017 08:25 Medications Medications Current Medications Acetaminophen (Tylenol Tab) 650 mg Q6H PRN PO PAIN AND OR ELEVATED TEMP Last administered on 07/12/17 04:15; Admin Dose 650 MG; Start 07/11/17 at 04:00 Ondansetron HCl (Zofran Inj) 4 mg Q6H PRN IV NAUSEA AND/OR VOMITING; Start 07/11/17 at 04:00 Apixaban (Eliquis) 5 mg BID PO Last administered on 07/12/17 08:48; Admin Dose 5 MG; Start 07/11/17 at 09:00 Aspirin (Aspirin) 81 mg DAILY PO Last administered on 07/12/17 08:48; Admin Dose 81 MG; Start 07/11/17 at 09:00 Atorvastatin Calcium (Lipitor) 40 mg HS PO Last administered on 07/11/17 20:45 ; Admin Dose 40 MG; Start 07/11/17 at 21:00 Escitalopram Oxalate (Lexapro) 10 mg DAILY PO Last administered on 07/12/17 08 :48; Admin Dose 10 MG; Start 07/11/17 at 09:00 Amiodarone HCl (Cordarone) 100 mg DAILY PO Last administered on 07/12/17 10:48 ; Admin Dose 100 MG; Start 07/12/17 at 10:30 Metoprolol Tartrate (Lopressor) 12.5 mg BID PO ; Start 07/12/17 at 21:00 JOSH OAKES Jul 12, 2017 15:54
[2017-07-12] MEDS: FUROSEMIDE 20 MG INJ IV SCH (17:33)
[2017-07-12] MEDS: ATORVASTATIN 40 MG TAB PO SCH (20:51)
[2017-07-12] MEDS ORDERED: METOPROLOL 25 MG TAB PO SCH (21:00)
[2017-07-13] VITALS (9 sets, daily range): BP systolic 111–142; BP diastolic 56–76; PULSE 44–49; RESP 18–22
[2017-07-13] MEDS: FUROSEMIDE 20 MG INJ IV SCH (05:31)
[2017-07-13] MEDS ORDERED: AMIODARONE 200 MG TAB PO SCH (09:00)
[2017-07-13] MEDS: AMIODARONE 200 MG TAB PO SCH (09:00)
[2017-07-13] MEDS: ESCITALOPRAM 10 MG TAB PO SCH (09:02)
[2017-07-13] MEDS: ASPIRIN 81 MG TAB PO SCH (09:02)
[2017-07-13] MEDS: APIXABAN 5 MG TABLET PO SCH (09:03)
[2017-07-13] MEDS ORDERED: POTASSIUM CHLORIDE (SR) 20 MEQ TAB PO STA (09:40)
[2017-07-13] MEDS ORDERED: MAGNESIUM SULFATE 2 GM/50 ML 50 ML IVPB ONE (10:00)
--- NOTE | 2017-07-13 10:35 | PDOCDIS ---
Discharge Instructions CONDITION Patient Condition: Stable HOME CARE INSTRUCTIONS: Special Diet: Cardiac diet ACTIVITY: Activity Restrictions: No Restrictions FOLLOW UP/APPOINTMENTS Follow-up Plan Patient needs to follow-up with his primary care physician within 1 week Follow-up with low pressure boiler tender within 1-2 weeks OTHER ORDERS: Other Orders: Patient to resume home Eliquis, aspirin, Lexapro and Crestor Please do not resume Toprol-XL Please take new dosing of Amiodarone, Lasix and supplemental potassium, prescriptions are provided. JOSH OAKES Jul 13, 2017 10:35
--- NOTE | 2017-07-13 10:35 | PDOCDIS ---
Discharge Instructions CONDITION Patient Condition: Stable HOME CARE INSTRUCTIONS: Special Diet: Cardiac diet ACTIVITY: Activity Restrictions: No Restrictions FOLLOW UP/APPOINTMENTS Follow-up Plan Patient needs to follow-up with his primary care physician within 1 week Follow-up with company accountant within 1-2 weeks OTHER ORDERS: Other Orders: Patient to resume home Eliquis, aspirin, Lexapro and Crestor Please do not resume Toprol-XL Please take new dosing of Amiodarone, Lasix and supplemental potassium, prescriptions are provided. JOSH OAKES Jul 13, 2017 10:35
--- NOTE | 2017-07-13 10:35 | PN ---
Date/Time of Note Date/Time of Note DATE: 07/13/17 TIME: 10:28 Assessment/Plan VTE Prophylaxis VTE Prophylaxis Intervention: other (On Eliquis ) Lines/Catheters IV [facility]from [facility] Saline Lock Urinary Cath still in place: No Assessment/Plan Assessment/Plan 62-year-old male with: 1. Congestive heart failure exacerbation, acute on chronic systolic dysfunction with an audible volume overload and respiratory distress on admission, all improved with diuretics. We will discharge on Lasix 40 mg p.o. every morning. I have told the patient he can increase to twice daily work talked to his senior copywriter prior to increase in case of volume overload. Due to sinus bradycardia noted, beta-blockers have been discontinued. Given his systolic blood pressures as low as 100, will hold off of MELODY inhibitors until follow-up with senior copywriter. Continue Eliquis for venous thromboembolism and also history of A. fib with previous CVA Cardiac enzymes negative 2 Currently back to sinus rhythm. 2. Atrial fibrillation, chronic, paroxysmal, previous ischemic CVA, currently on amiodarone and also beta-blockers. Back in sinus rhythm, patient with chronic sinus bradycardia well tolerated, will decrease amiodarone dosing, discontinue beta blockers for now. Continue Eliquis for secondary prevention of stroke. Replete electrolytes with goal potassium of 4 and magnesium 2, TFTs within normal 3. 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 Patient currently on Eliquis, rate control. No obvious deficit currently. 4. Coronary artery disease, status post angiogram and stenting, continue aspirin along with other cardiac medications but having to discontinue beta blockers due to bradycardia noted. 5. Venous thromboembolism, with history of left lower extremity DVT and status post IVC filter placement. Currently on Eliquis. 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 6. Hyperlipidemia: continue statins Prophylaxis: Continue Eliquis, Pepcid for GI prophylaxis. Disposition: Discharge home today, follow-up with primary care physician and senior copywriter within 1 week. Subjective 24 Hr Interval Summary Free Text/Dictation Patient doing well on room air, heart rate stable in the mid 40s asymptomatic, patient reports that is always the case. I have asked him to stop his beta- blockers, his amiodarone is decreased to 100 mg daily to keep him in sinus rhythm, he needs to follow-up with his primary care physician and senior copywriter Exam/Review of Systems Vital Signs Vitals Vital Signs Date Time Temp Pulse Resp B/P Pulse Ox O2 Delivery O2 Flow Rate FiO2 07/13/17 08:12 47 07/13/17 07:35 98.3 21 131/67 93 Intake and Output 07/12/17 07/12/17 07/13/17 15:00 23:00 07:00 Intake Total 1000 ml 800 ml Balance 1000 ml 800 ml Exam Constitutional: alert, oriented, well developed Respiratory: clear to auscultation, normal air movement Cardiovascular: nl pulses, regular rate and rhythm Gastrointestinal: non-tender, soft Musculoskeletal: nl extremities to inspection Extremities: normal pulses, other (No edema, clubbing or cyanosis) Neurological: COOK HELPER VEGETABLE II-XII intact, nl mental status, nl speech, nl strength Results Result Diagram: 07/12/17 0600 07/13/17 0709 Results 24 hrs Laboratory Tests Test 07/13/17 07:09 Sodium Level 142 Potassium Level 3.5 Chloride Level 104 Carbon Dioxide Level 27 Anion Gap 15 Blood Urea Nitrogen 31 H Creatinine 1.06 Glucose Level 109 Calcium Level 8.9 Magnesium Level 1.8 Medications Medications Current Medications Acetaminophen (Tylenol Tab) 650 mg Q6H PRN PO PAIN AND OR ELEVATED TEMP Last administered on 07/12/17 04:15; Admin Dose 650 MG; Start 07/11/17 at 04:00 Ondansetron HCl (Zofran Inj) 4 mg Q6H PRN IV NAUSEA AND/OR VOMITING; Start 07/11/17 at 04:00 Apixaban (Eliquis) 5 mg BID PO Last administered on 07/13/17 09:03; Admin Dose 5 MG; Start 07/11/17 at 09:00 Aspirin (Aspirin) 81 mg DAILY PO Last administered on 07/13/17 09:02; Admin Dose 81 MG; Start 07/11/17 at 09:00 Atorvastatin Calcium (Lipitor) 40 mg HS PO Last administered on 07/12/17 20:51 ; Admin Dose 40 MG; Start 07/11/17 at 21:00 Escitalopram Oxalate (Lexapro) 10 mg DAILY PO Last administered on 07/13/17 09 :02; Admin Dose 10 MG; Start 07/11/17 at 09:00 Amiodarone HCl 100 mg 100 mg DAILY PO Last administered on 07/12/17t 10:48; Admin Dose 100 MG; Start 07/12/17 at 10:30 Magnesium Sulfate (Magnesium Sulfate 2 Gm/50 ml) 50 ml @ 25 mls/hr ONCE ONCE IVPB ; Start 07/13/17 at 10:00; Stop 07/13/17 at 11:59 Furosemide (Lasix) 40 mg DAILY@06 PO ; Start 07/14/17 at 06:00 JOSH OAKES Jul 13, 2017 10:35
--- NOTE | 2017-07-13 10:35 | PN ---
Date/Time of Note Date/Time of Note DATE: 07/13/17 TIME: 10:28 Assessment/Plan VTE Prophylaxis VTE Prophylaxis Intervention: other (On Eliquis ) Lines/Catheters IV [facility]from [facility] Saline Lock Urinary Cath still in place: No Assessment/Plan Assessment/Plan 62-year-old male with: 1. Congestive heart failure exacerbation, acute on chronic systolic dysfunction with an audible volume overload and respiratory distress on admission, all improved with diuretics. We will discharge on Lasix 40 mg p.o. every morning. I have told the patient he can increase to twice daily work talked to his head counselor prior to increase in case of volume overload. Due to sinus bradycardia noted, beta-blockers have been discontinued. Given his systolic blood pressures as low as 100, will hold off of MELODY inhibitors until follow-up with head counselor. Continue Eliquis for venous thromboembolism and also history of A. fib with previous CVA Cardiac enzymes negative 2 Currently back to sinus rhythm. 2. Atrial fibrillation, chronic, paroxysmal, previous ischemic CVA, currently on amiodarone and also beta-blockers. Back in sinus rhythm, patient with chronic sinus bradycardia well tolerated, will decrease amiodarone dosing, discontinue beta blockers for now. Continue Eliquis for secondary prevention of stroke. Replete electrolytes with goal potassium of 4 and magnesium 2, TFTs within normal 3. 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 Patient currently on Eliquis, rate control. No obvious deficit currently. 4. Coronary artery disease, status post angiogram and stenting, continue aspirin along with other cardiac medications but having to discontinue beta blockers due to bradycardia noted. 5. Venous thromboembolism, with history of left lower extremity DVT and status post IVC filter placement. Currently on Eliquis. 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 6. Hyperlipidemia: continue statins Prophylaxis: Continue Eliquis, Pepcid for GI prophylaxis. Disposition: Discharge home today, follow-up with primary care physician and head counselor within 1 week. Subjective 24 Hr Interval Summary Free Text/Dictation Patient doing well on room air, heart rate stable in the mid 40s asymptomatic, patient reports that is always the case. I have asked him to stop his beta- blockers, his amiodarone is decreased to 100 mg daily to keep him in sinus rhythm, he needs to follow-up with his primary care physician and head counselor Exam/Review of Systems Vital Signs Vitals Vital Signs Date Time Temp Pulse Resp B/P Pulse Ox O2 Delivery O2 Flow Rate FiO2 07/13/17 08:12 47 07/13/17 07:35 98.3 21 131/67 93 Intake and Output 07/12/17 07/12/17 07/13/17 15:00 23:00 07:00 Intake Total 1000 ml 800 ml Balance 1000 ml 800 ml Exam Constitutional: alert, oriented, well developed Respiratory: clear to auscultation, normal air movement Cardiovascular: nl pulses, regular rate and rhythm Gastrointestinal: non-tender, soft Musculoskeletal: nl extremities to inspection Extremities: normal pulses, other (No edema, clubbing or cyanosis) Neurological: MEAT PROCESSOR II-XII intact, nl mental status, nl speech, nl strength Results Result Diagram: 07/12/17 0600 07/13/17 0709 Results 24 hrs Laboratory Tests Test 07/13/17 07:09 Sodium Level 142 Potassium Level 3.5 Chloride Level 104 Carbon Dioxide Level 27 Anion Gap 15 Blood Urea Nitrogen 31 H Creatinine 1.06 Glucose Level 109 Calcium Level 8.9 Magnesium Level 1.8 Medications Medications Current Medications Acetaminophen (Tylenol Tab) 650 mg Q6H PRN PO PAIN AND OR ELEVATED TEMP Last administered on 07/12/17 04:15; Admin Dose 650 MG; Start 07/11/17 at 04:00 Ondansetron HCl (Zofran Inj) 4 mg Q6H PRN IV NAUSEA AND/OR VOMITING; Start 07/11/17 at 04:00 Apixaban (Eliquis) 5 mg BID PO Last administered on 07/13/17 09:03; Admin Dose 5 MG; Start 07/11/17 at 09:00 Aspirin (Aspirin) 81 mg DAILY PO Last administered on 07/13/17 09:02; Admin Dose 81 MG; Start 07/11/17 at 09:00 Atorvastatin Calcium (Lipitor) 40 mg HS PO Last administered on 07/12/17 20:51 ; Admin Dose 40 MG; Start 07/11/17 at 21:00 Escitalopram Oxalate (Lexapro) 10 mg DAILY PO Last administered on 07/13/17 09 :02; Admin Dose 10 MG; Start 07/11/17 at 09:00 Amiodarone HCl 100 mg 100 mg DAILY PO Last administered on 07/12/17t 10:48; Admin Dose 100 MG; Start 07/12/17 at 10:30 Magnesium Sulfate (Magnesium Sulfate 2 Gm/50 ml) 50 ml @ 25 mls/hr ONCE ONCE IVPB ; Start 07/13/17 at 10:00; Stop 07/13/17 at 11:59 Furosemide (Lasix) 40 mg DAILY@06 PO ; Start 07/14/17 at 06:00 JOSH OAKES Jul 13, 2017 10:35
--- NOTE | 2017-07-13 10:35 | PN ---
Date/Time of Note Date/Time of Note DATE: 07/13/17 TIME: 10:28 Assessment/Plan VTE Prophylaxis VTE Prophylaxis Intervention: other (On Eliquis ) Lines/Catheters IV C[facility]ter Type (from [facility]): Saline Lock Urinary Cath still in place: No Assessment/Plan Assessment/Plan 62-year-old male with: 1. Congestive heart failure exacerbation, acute on chronic systolic dysfunction with an audible volume overload and respiratory distress on admission, all improved with diuretics. We will discharge on Lasix 40 mg p.o. every morning. I have told the patient he can increase to twice daily work talked to his sap developer prior to increase in case of volume overload. Due to sinus bradycardia noted, beta-blockers have been discontinued. Given his systolic blood pressures as low as 100, will hold off of MELODY inhibitors until follow-up with sap developer. Continue Eliquis for venous thromboembolism and also history of A. fib with previous CVA Cardiac enzymes negative 2 Currently back to sinus rhythm. 2. Atrial fibrillation, chronic, paroxysmal, previous ischemic CVA, currently on amiodarone and also beta-blockers. Back in sinus rhythm, patient with chronic sinus bradycardia well tolerated, will decrease amiodarone dosing, discontinue beta blockers for now. Continue Eliquis for secondary prevention of stroke. Replete electrolytes with goal potassium of 4 and magnesium 2, TFTs within normal 3. 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 Patient currently on Eliquis, rate control. No obvious deficit currently. 4. Coronary artery disease, status post angiogram and stenting, continue aspirin along with other cardiac medications but having to discontinue beta blockers due to bradycardia noted. 5. Venous thromboembolism, with history of left lower extremity DVT and status post IVC filter placement. Currently on Eliquis. 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 6. Hyperlipidemia: continue statins Prophylaxis: Continue Eliquis, Pepcid for GI prophylaxis. Disposition: Discharge home today, follow-up with primary care physician and sap developer within 1 week. Subjective 24 Hr Interval Summary Free Text/Dictation Patient doing well on room air, heart rate stable in the mid 40s asymptomatic, patient reports that is always the case. I have asked him to stop his beta- blockers, his amiodarone is decreased to 100 mg daily to keep him in sinus rhythm, he needs to follow-up with his primary care physician and sap developer Exam/Review of Systems Vital Signs Vitals Vital Signs Date Time Temp Pulse Resp B/P Pulse Ox O2 Delivery O2 Flow Rate FiO2 07/13/17 08:12 47 07/13/17 07:35 98.3 21 131/67 93 Intake and Output 07/12/17 07/12/17 07/13/17 15:00 23:00 07:00 Intake Total 1000 ml 800 ml Balance 1000 ml 800 ml Exam Constitutional: alert, oriented, well developed Respiratory: clear to auscultation, normal air movement Cardiovascular: nl pulses, regular rate and rhythm Gastrointestinal: non-tender, soft Musculoskeletal: nl extremities to inspection Extremities: normal pulses, other (No edema, clubbing or cyanosis) Neurological: CREDIT REPORTER II-XII intact, nl mental status, nl speech, nl strength Results Result Diagram: 07/12/17 0600 07/13/17 0709 Results 24 hrs Laboratory Tests Test 07/13/17 07:09 Sodium Level 142 Potassium Level 3.5 Chloride Level 104 Carbon Dioxide Level 27 Anion Gap 15 Blood Urea Nitrogen 31 H Creatinine 1.06 Glucose Level 109 Calcium Level 8.9 Magnesium Level 1.8 Medications Medications Current Medications Acetaminophen (Tylenol Tab) 650 mg Q6H PRN PO PAIN AND OR ELEVATED TEMP Last administered on 07/12/17 04:15; Admin Dose 650 MG; Start 07/11/17 at 04:00 Ondansetron HCl (Zofran Inj) 4 mg Q6H PRN IV NAUSEA AND/OR VOMITING; Start 07/11/17 at 04:00 Apixaban (Eliquis) 5 mg BID PO Last administered on 07/13/17 09:03; Admin Dose 5 MG; Start 07/11/17 at 09:00 Aspirin (Aspirin) 81 mg DAILY PO Last administered on 07/13/17 09:02; Admin Dose 81 MG; Start 07/11/17 at 09:00 Atorvastatin Calcium (Lipitor) 40 mg HS PO Last administered on 07/12/17 20:51 ; Admin Dose 40 MG; Start 07/11/17 at 21:00 Escitalopram Oxalate (Lexapro) 10 mg DAILY PO Last administered on 07/13/17 09 :02; Admin Dose 10 MG; Start 07/11/17 at 09:00 Amiodarone HCl 100 mg 100 mg DAILY PO Last administered on 07/12/17t 10:48; Admin Dose 100 MG; Start 07/12/17 at 10:30 Magnesium Sulfate (Magnesium Sulfate 2 Gm/50 ml) 50 ml @ 25 mls/hr ONCE ONCE IVPB ; Start 07/13/17 at 10:00; Stop 07/13/17 at 11:59 Furosemide (Lasix) 40 mg DAILY@06 PO ; Start 07/14/17 at 06:00 JOSH OAKES Jul 13, 2017 10:35
--- NOTE | 2017-07-13 10:35 | PDOCDIS ---
Discharge Instructions CONDITION Patient Condition: Stable HOME CARE INSTRUCTIONS: Special Diet: Cardiac diet ACTIVITY: Activity Restrictions: No Restrictions FOLLOW UP/APPOINTMENTS Follow-up Plan Patient needs to follow-up with his primary care physician within 1 week Follow-up with stick inserter within 1-2 weeks OTHER ORDERS: Other Orders: Patient to resume home Eliquis, aspirin, Lexapro and Crestor Please do not resume Toprol-XL Please take new dosing of Amiodarone, Lasix and supplemental potassium, prescriptions are provided. JOSH OAKES Jul 13, 2017 10:35
[2017-07-13] MEDS ORDERED: FURO40TA4 PO (10:39)
[2017-07-13] MEDS ORDERED: APIX5TAB PO (10:39)
[2017-07-13] MEDS ORDERED: AMIO200T2 PO (10:39)
[2017-07-13] MEDS ORDERED: POTA20TA96 PO (10:40)
[2017-07-14] MEDS ORDERED: FUROSEMIDE 40 MG TAB PO SCH (06:00)
== END 2017-07-13 15:50 | disposition home or self-care (01) | DRG 293 ==
LOC: MS4 02:58
PROVIDERS: ADMIT Internal Medicine; ATTEND Internal Medicine
DX: I11.0 Hypertensive heart disease with heart failure (principal); I48.0 Paroxysmal atrial fibrillation; I50.23 Acute on chronic systolic (congestive) heart failure; I25.10 Atherosclerotic heart disease of native coronary artery without angina pectoris; E78.5 Hyperlipidemia, unspecified; Z79.82 Long term (current) use of aspirin; Z79.02 Long term (current) use of antithrombotics/antiplatelets; Z87.891 Personal history of nicotine dependence; Z86.718 Personal history of other venous thrombosis and embolism; Z95.5 Presence of coronary angioplasty implant and graft; Z86.73 Personal history of transient ischemic attack (TIA), and cerebral infarction without residual deficits
CPT/HCPCS: 71010; 80048; 80053; 80061; 82550; 82553; 83735; 83880; 84100; 84439; 84443; 84484; 85025; 93005; 93306; 93970; J1940; J3475

== ENCOUNTER 2017-10-13 17:10 | Emergency (ER) | END 2017-10-13 18:50 | disposition left against medical advice (07) ==

== ENCOUNTER 2019-02-19 10:02 | Emergency (ER) | payer OTHER ==
[~2019-02-19] VITALS: Ht 317.5 cm; Wt 104.5 kg
[~2019-02-19 10:02] MED LIST changes: +AMIO200T4 PO; +APIX5TAB PO; -CLOP75TA19 PO; -ESOM40CA PO; +FURO40TA4 PO; -LISI10TA2 PO; +POTA20TA96 PO; -TAMS-14 PO
[2019-02-19 10:05] VITALS: Ht 317.5 cm; Wt 104.5 kg
[2019-02-19] MEDS ORDERED: ALBUTEROL 0.083% (NEB) 2.5 MG/3 ML AMP INH STA (10:14)
[2019-02-19] MEDS ORDERED: FUROSEMIDE 40 MG INJ IV ONE (10:30)
[2019-02-19] MEDS ORDERED: NITROGLYCERIN 0.4 MG/HR PATCH TRANSDERM ONE (10:30)
[2019-02-19] MEDS ORDERED: NITROGLYCERIN 2% 1 GM OINT PKT TD STA (10:54)
--- NOTE | 2019-02-19 12:08 | ERD ---
ER Documentation Chief Complaint Chief Complaint R83 home sob x1wk, Rt chest pain today HPI 64-year-old male presents to the emergency department by paramedics complaining of shortness of breath. Patient states that over the last week or so he has been feeling somewhat short of breath to the point where he has had to sleep sitting up in a chair. Over the last 24 hours this became significantly worse. He reports no fevers or chi lls or hemoptysis or sputum production. He reports a nonspecific right-sided chest discomfort associated with this. I have reviewed the industrial boilermaker pre-hospital care. Pre-hospital vital signs were reviewed. Pre-hospital diagnostic tests were reviewed. Upon arrival, patient is feeling short of breath but without significant chest discomfort at this current time. ROS All systems reviewed and are negative except as per history of present illness. Medications Home Meds Active Scripts Potassium Chloride* (Potassium Chloride*) 20 Meq Tablet.er, 20 MEQ PO DAILY for 30 Days, TAB.SA 3 Refills to be taken with Lasix Prov:VIOLETTE,NEvaPHANJOSÉ Victorina 07/13/17 Furosemide* (Furosemide*) 40 Mg Tablet, 40 MG PO DAILY@06 for 30 Days, TAB 3 Refills Prov:VIOLETTE,NEvaPHANJOSÉ Prajapati 07/13/17 Amiodarone Hcl* (Amiodarone Hcl*) 200 Mg Tablet, 100 MG PO DAILY for 30 Days, TAB 3 Refills Prov:VIOLETTEJessicaRENAE Prajapati 07/13/17 Apixaban* (Eliquis*) 5 Mg Tablet, 5 MG PO BID for 30 Days, TAB 3 Refills Prov:VIOLETTE,NRENAE Prajapati 07/13/17 Allergies Allergies: Coded Allergies: No Known Drug Allergy (Verified Allergy, Unknown, 07/13/17) PMhx/Soc History of Surgery: Yes Anesthesia Reaction: No Hx Neurological Disorder: Yes (CVA weakness L sided) Hx Respiratory Disorders: No Hx Cardiac Disorders: Yes (CHF, CAD 5 stents) Hx Psychiatric Problems: No Hx Miscellaneous Medical Probl: No Hx Alcohol Use: No Hx Substance Use: No Hx Tobacco Use: No Smoking Status: Never smoker FmHx Noncontributory for chief complaint Physical Exam Vitals Vital Signs Date Temp Pulse Resp B/P (MAP) Pulse Ox O2 O2 Flow FiO2 Time Delivery Rate 02/19/19 111 20 110/80 99 Nasal 2.0 11:40 (90) Cannula 02/19/19 Nasal 2 10:31 Cannula 02/19/19 105 21 97 Nasal 2.0 10:29 Cannula 02/19/19 97.6 105 21 122/84 96 10:05 (97) Physical Exam GENERAL: The patient is well developed and appropriate for usual state of health in no apparent distress HEENT: Pupils equal, round, and reactive to light. EOMI. There is no scleral icterus. NECK: C-spine is soft and supple, there is no meningismus. There is no cervical lymphadenopathy. LUNGS: Crackles at the base. No tachypnea or retractions. HEART: Irregularly irregular rate and rhythm with no murmurs rubs or gallops ABDOMEN: Soft, non-tender, non-distended. There are bowel sounds in all four quadrants. No rebound or guarding. EXTREMITIES: 1+ edema bilaterally with no cyanosis or clubbing NEURO: The patient moves all four extremities with 5/5 strength. Cranial nerves II - XII are intact. Normal gait. Alert and oriented SKIN: There is no apparent rash or petechiae. HEME/LYMPHATIC: There is no evidence of excessive bruising or lymphedema. PSYCHIATRIC: The patient does not appear anxious or depressed. Result Diagram: 02/19/19 1030 02/19/19 1030 Results 24 hrs Laboratory Tests Test 02/19/19 10:28 02/19/19 10:30 POC Venous Lactate 1.6 mmol/L White Blood Count 7.7 10^3/ul Red Blood Count 4.16 10^6/ul Hemoglobin 11.3 g/dl Hematocrit 36.7 % Mean Corpuscular Volume 88.2 fl Mean Corpuscular Hemoglobin 27.2 pg Mean Corpuscular Hemoglobin Concent 30.8 g/dl Red Cell Distribution Width 15.7 % Platelet Count 281 10^3/UL Mean Platelet Volume 10.3 fl Immature Granulocytes % 0.500 % Neutrophils % 69.4 % Lymphocytes % 21.0 % Monocytes % 7.0 % Eosinophils % 1.6 % Basophils % 0.5 % Nucleated Red Blood Cells % 0.0 /100WBC Immature Granulocytes # 0.040 10^3/ul Neutrophils # 5.4 10^3/ul Lymphocytes # 1.6 10^3/ul Monocytes # 0.5 10^3/ul Eosinophils # 0.1 10^3/ul Basophils # 0.0 10^3/ul Nucleated Red Blood Cells # 0.0 10^3/ul Prothrombin Time 16.7 Sec Prothrombin Time Ratio 1.3 INR International Normalized Ratio 1.34 Activated Partial Thromboplast Time 31.5 Sec Sodium Level 142 mmol/L Potassium Level 4.8 mmol/L Chloride Level 103 mmol/L Carbon Dioxide Level 29 mmol/L Anion Gap 10 Blood Urea Nitrogen 20 mg/dl Creatinine 1.09 mg/dl Est Glomerular Filtrat Rate mL/min > 60 mL/min Glucose Level 122 mg/dl Calcium Level 9.0 mg/dl Total Bilirubin 1.2 mg/dl Direct Bilirubin 0.00 mg/dl Indirect Bilirubin 1.2 mg/dl Aspartate Amino Transf (AST/SGOT) 16 IU/L Alanine Aminotransferase (ALT/SGPT) 25 IU/L Alkaline Phosphatase 50 IU/L Troponin I < 0.012 ng/ml B-Type Natriuretic Peptide 1230 PG/ML Total Protein 7.3 g/dl Albumin 4.0 g/dl Globulin 3.30 g/dl Albumin/Globulin Ratio 1.21 Current Medications Medications Dose Sig/Anthony Start Time Status Last (Trade) Ordered Route PRN Stop Time Admin Dose Reason Admin Albuterol 5 mg ONCE STAT 02/19/19 DC 02/19/19 (Proventil INH 10:14 10:28 0.083% (Neb)) 02/19/19 10:17 Furosemide 40 mg ONCE ONCE 02/19/19 DC 02/19/19 (Lasix) IV 10:30 10:41 02/19/19 10:31 1 patch ONCE ONCE 02/19/19 DC Nitroglycerin TRANSDERM 10:30 02/19/19 10:31 (Nitroglyceri n 0.4 Mg/Hr) 1 inch ONCE STAT 02/19/19 DC 02/19/19 Nitroglycerin TD 10:54 10:59 02/19/19 10:56 (Nitroglyceri n 2% Oint) Procedures/MDM Patient was taken to a room, seen and evaluated. Comfort measures were initiated. Diagnostic tests were ordered and reviewed. 3 LEAD RHYTHM STRIP: Atrial fibrillation with rapid ventricular response EK lead EKG reviewed by myself: A. fib with RVR Normal [place] and intervals No ST elevation, depression, or T wave inversion, nonspecific ST and T wave changes Impression: Atrial fibrillation with RVR without obvious ischemia EKG was repeated and interpreted by myself indicating no significant interval change: A. fib with RVR Normal [place] and intervals No ST elevation, depression, or T wave inversion, nonspecific ST and T wave changes Impression: Atrial fibrillation with RVR without obvious ischemia RADIOLOGY: Reviewed with the radiologist CONSULTATION: [facility] was notified for transfer REEVALUATION: 1205: Diagnostic tests were appreciated. Patient was stabilizing. His heart rate remained approximately 90s to low 100s without need for further rate control. He began to diurese and his respiratory status seemed to improve. MEDICAL DECISION MAKING: Patient presents for shortness of breath. Differential diagnosis entertained included asthma, pneumonia, other cardiac and pulmonary concerns. After reviewing the patient's diagnostic tests and clinical presentation, patient appears to have decompensated congestive heart failure associated with his atrial fibrillation. Patient will require transfer to [place] for further stabilization including monitoring of his heart rate, serial cardiac enzymes, further diuretics.. Departure Diagnosis: Primary Impression: CHF (congestive heart failure) Additional Impression: Atrial fibrillation Condition: AMARIS Clemons Feb 19, 2019 12:08
[2019-02-19 14:03] VITALS: BP 106/95; PULSE 110; RESP 26
== END 2019-02-19 14:19 | disposition short-term general hospital (02) ==
LOC: E/R 10:02
DX: I50.9 Heart failure, unspecified (principal); I48.91 Unspecified atrial fibrillation; I25.10 Atherosclerotic heart disease of native coronary artery without angina pectoris
CPT/HCPCS: 71045; 80053; 83605; 83880; 84484; 85025; 85610; 85730; 93005; 94664; 96374; 99284; J1940